=== PATIENT | female | born 1955 | race African-American/Black ===

== ENCOUNTER 2018-04-19 09:29 | Emergency (ER) | payer OTHER, SELFPAY ==
[2018-04-19 11:40] VITALS: BP 136/86; PULSE 94; RESP 13; TEMP 37.3; O2SAT 98
--- NOTE | 2018-04-19 12:35 | ED.NECK ---
HPI - Neck Pain/Injury General Chief Complaint: Neck Pain/Injury Stated Complaint: PAIN ON OUTSIDE OF NECK Time Seen by Provider: 04/19/18 12:35 Source: patient Mode of arrival: ambulatory Limitations: no limitations History of Present Illness HPI Narrative: 62-year-old female here for evaluation of bilateral neck pain. Patient states that it did start a couple weeks ago. She was seen at the walk-in clinic and was told to take Motrin. She states that she took the Motrin for approximately 1 week and her symptoms completely resolved. She states she stopped the Motrin because she was only told to take it for week and now the symptoms have returned. She has no problems breathing. No problems swallowing. Does have pain on bilateral sides of her neck. No masses. No fevers. Here for evaluation also states that the symptoms do descended down into her anterior chest Related Data Home Medications Medication Instructions Recorded Confirmed Probiotic 1 cap PO DAILY 04/19/18 04/19/18 Vitamin B-12 1 tab PO DAILY 04/19/18 04/19/18 Allergies Allergy/AdvReac Type Severity Reaction Status Date / Time shellfish derived Allergy Severe angio adema Verified 04/07/18 10:03 Review of Systems Constitutional Denies chills, Denies fever(s), Denies lethargy and Denies weakness ENT Comments: Bilateral neck pain Cardiovascular Reports chest pain (Anterior chest pain), Denies edema, Denies irregular heart rhythm, Denies dyspnea and Denies dyspnea on exertion Respiratory Denies cough, Denies dyspnea, Denies dyspnea on exertion and Denies wheezing Gastrointestinal Gastrointestinal: Denies abdominal pain, Denies change in bowel habits, Denies diarrhea, Denies nausea and Denies vomiting Integumentary/Breasts Denies pruritus, Denies erythema, Denies rash and Denies wounds Neurologic Denies weakness Hematologic/Lymphatic Denies easy bruising Allergic/Immunologic Denies wheezing PFSH Social History Smoking Status: Never smoker Exam Initial Vital Signs Initial Vital Signs: Vital Signs Temperature 99.1 F 04/19/18 11:40 Pulse Rate 94 H 04/19/18 11:40 Respiratory Rate 13 04/19/18 11:40 Blood Pressure 136/86 H 04/19/18 11:40 Pulse Oximetry 98 04/19/18 11:40 Const General: cooperative and well developed Nutritional Appearance: well nourished Orientation: alert, awake, oriented x3 and not confused [facility] Head: normocephalic and atraumatic Ears: external ears normal Nose: external nose normal and No nasal discharge Face and sinus: sinuses nontender, face symmetric, no sinus tenderness and No dry mucous membranes Mouth: oral mucosae normal and moist mucous membranes Eyes Pupils: PERRL Neck Neck: normal visual inspection, no meningeal signs, trachea midline, No lymphadenopathy, No midline deformity and No JVD Lymphatic: No lymphedema Chest Chest: normal inspection of the chest Resp Effort & Inspection: normal respiratory effort, able to speak in complete sentences, no respiratory distress and no use of accessory muscles Auscultation: clear to auscultation bilaterally, no rales, no rhonchi and no wheezes Cardio Rate: regular rate Rhythm: regular rhythm Heart Sounds: no click, no gallops, no murmurs and no rubs Pulses: normal peripheral pulses Skin General: no rashes or lesions noted, No jaundice and No petechiae Neuro General: alert, oriented x3, gait normal and no focal motor deficits Cranial Nerves: CN's II-XI intact bilaterally Speech: speech normal Motor: strength 5/5 throughout Sensory Exam: no sensory deficits noted Course Orders Ordered: ED Orders 04/19/18 12:50 EKG-12 Lead Stat 04/19/18 13:35 Basic Metabolic Panel Stat Complete Blood Count AUTO DIFF Stat Troponin I Stat 04/19/18 14:32 CT soft tissue neck w con Stat Discontinued Medications Sodium Chloride (Normal Saline 0.9%) 1,000 mls @ 1,000 mls/hr IV BOLUS ONE Stop: 04/19/18 13:49 Last Infusion: 04/19/18 14:45 Dose: 0 mls/hr Admin: 04/19/18 13:43 Dose: 1,000 mls/hr Vital Signs - 8 hr 04/19/18 11:40 04/19/18 13:53 04/19/18 15:17 Temperature 99.1 F Pulse Rate 94 H 96 H 106 H Respiratory Rate 13 16 21 Blood Pressure 136/86 H Blood Pressure [Left Arm] 141/104 H 130/75 H Pulse Oximetry 98 97 95 04/19/18 16:17 Temperature Pulse Rate 96 H Respiratory Rate 24 Blood Pressure 125/72 H Blood Pressure [Left Arm] Pulse Oximetry 100 MDM - Neck Pain/Injury Lab Data Attestation: I reviewed the patient's lab results. Result diagrams: 04/19/18 13:35 04/19/18 13:35 Lab Results 04/19/18 04/19/18 Range/Units 13:35 13:35 WBC 11.0 (4.5-11.0) X10^3/uL RBC 3.57 L (4.0-5.2) X10^6/uL Hgb 10.8 L (12.0-16.0) g/dL Hct 31.8 L (36-46) % MCV 89.2 (80-100) fL MCH 30.3 (26-34) PG MCHC 34.0 (30-36) % RDW 14.2 (11.6-14.8) % Plt Count 269 (150-400) X10^3/uL Neut % (Auto) 79.4 H (50-75) % Lymph % (Auto) 12.6 L (25-40) % [place] % (Auto) 7.7 (3-14) % Eos % (Auto) 0.1 L (2-4) % Baso % (Auto) 0.2 (0-2) % Neut # (Auto) 8800 H (7284-1380) /uL Sodium 138 (137-145) mmol/L Potassium 3.8 (3.4-5.1) mmol/L Chloride 99.0 (98-107) mmol/L Carbon Dioxide 29.0 (22-32) mmol/L BUN 16.0 (7-17) mg/dL Creatinine 0.80 (0.52-1.04) mg/dL Estimated GFR > 60.0 (>60) mL/min BUN/Creatinine Ratio 20.0 (6-22) Glucose 86 (80-110) mg/dL Calcium 9.2 (8.4-10.2) mg/dL Troponin I < 0.012 (0.01-0.034) ng/mL Imaging Data CT neck: Radiologist's impression: PROCEDURE: CT SOFT TISSUE NECK W CON INDICATIONS: Anterior neck pain and problems swallowing TECHNIQUE: After the administration of intravenous contrast, 3.0 mm axial sections acquired from the sella to the aortic arch. Additional oblique axial 3.0 mm sections acquired through the pharynx. 3 mm thick coronal and sagittal reformats were generated. For radiation dose reduction, the following was used: automated exposure control. COMPARISON: None. FINDINGS: Image quality: Excellent. Lymph nodes: No enlarged lymph nodes seen throughout the neck. There is a prominent left level IV lymph node that measures 0.9 cm in short axis. Vessels: Visualized vasculature appears patent. The right common carotid artery and possible internal carotid artery follow medial course projected into the retropharyngeal space. Neck spaces: The oropharynx, nasopharynx, and pharynx demonstrate no mucosal lesions. The vocal cords, false vocal cords, pyriform sinuses, epiglottis, vallecula, and tongue base all appear normal. Extramucosal spaces appear unremarkable. Glands: The parotid and submandibular glands appear normal. Thyroid gland contains a large heterogeneously enhancing mass in the right lobe that measures 4.3 x 3.6 x 2.6 cm. Right thyroid mass causing leftward deviation of the trachea.. Miscellaneous: Visualized brain and orbits appear normal. Lung apices appear clear. Bilateral pleural fluid collections left greater than right noted. Superficial soft tissues appear normal. Bones: No suspicious bony lesions. Spine degenerative disc disease and facet arthropathy. Visualized sinuses and mastoids appear unremarkable. IMPRESSION: 1. 4.3 x 3.6 x 2.6 cm right thyroid mass. Recommend ultrasound guided biopsy for definitive characterization. 2. No lymphadenopathy based on size criteria. 3. Partially visualized bilateral pleural effusions left greater than right, partially visualized pericardial fluid and numerous prominent mediastinal lymph nodes which do not meet pathologic size criteria. Recommend CT scan of the chest for further characterization of findings if clinically indicated. Dictated by: Elisha Palacio MD, PhD on 04/19/2018 at 14:07 Approved by: Elisha Palacio MD, PhD on 04/19/2018 at 14:15 ECG Data Attestation: I personally reviewed and interpreted this ECG as follows: Prior ECG tracings: not available for review Interpretation: Time 1345 hr Sinus rhythm Ventricular rate in 98 Normal axis Normal intervals Normal QRS No ST T wave changes MDM Narrative Medical decision making narrative: Patient with a benign exam. Nontoxic appearing. No foreign bodies on the CT scan. Does have a thyroid nodule. She states that she has seen her primary doctor for this and has had a biopsy and stated that it was ???inconclusive. We did discuss the other findings on her CT scan to include the mediastinal lymph nodes which is somewhat concerning in the setting of that thyroid nodule. We also discussed the pleural effusions that were seen. We had a long discussion regarding her symptoms and further workup to include a CT scan of her chest. I did discuss whether not to do that here in the emergency department firs is doing it as an outpatient with her primary doctor. I do not feel that these findings on the CT scan are not emergent issue however they do need follow-up. I did express this with the patient and she expressed understanding. She does have a follow-up with her primary doctor the middle of next month. We did discuss doing the CT scan here in the emergency department however since she just received contrast for her neck CT we would have to do a noncontrast CT which I feel in this setting would not be optimal. Because of this the patient did agree with the plan of waiting and having this done as an outpatient. Informed her that she needed to contact her primary doctor to have this done. Since the Motrin she took approximately 1 week ago seem to resolve the symptoms that brought her in today will have her restart Motrin. She was informed to take this with food to avoid GI issues. She was given return precautions. She expressed understanding and agreement with plan Discharge Plan Departure Patient Disposition: Home, Self-Care Clinical Impression: Neck pain, Thyroid nodule, Pleural effusion Discharge Date/Time: 04/19/18 16:32 Interventions: ED Discharge Assessment Last Done: 04/19/18 16:17 Instructions: DI for Thyroid Nodule Activity Restrictions/Additional Instructions: As we discussed here in the emergency department you do have a thyroid nodule and some nonspecific lymph nodes noted on your CT scan. Likely discussed we will hold on further CT scans here today. I do recommend that you contact your primary care provider to see about getting a CT scan of your chest prior to your evaluation at the beginning of next month. You do need to discuss the thyroid nodule and the other findings with your primary care doctor. Return to the emergency department for any new symptoms or worsening symptoms. Prescriptions: No Action Probiotic 1 cap PO DAILY RF: 0 Vitamin B-12 1 tab PO DAILY RF: 0
[2018-04-19] MEDS: SODIUM CHLORIDE 0.9% 1,000 ML 1000 ML IV (13:43)
[2018-04-19 13:53] VITALS: BP 141/104; PULSE 96; RESP 16; O2SAT 97
[2018-04-19 13:58] LABS: Add Manual Diff / Slide Review NO; Basophils Percent Auto 0.2 % (0-2); Eosinophils Percent Auto 0.1 % (2-4); Hematocrit 31.8 % (36-46); Hemoglobin 10.8 g/dL (12.0-16.0); Lymphocytes Percent Auto 12.6 % (25-40); Mean Corpuscular Hemoglobin 30.3 PG (26-34); Mean Corpuscular Volume 89.2 fL (80-100); Monocytes Percent Auto 7.7 % (3-14); Neutrophils Absolute Auto 8800 /uL (3000-5900); Neutrophils Percent Auto 79.4 % (50-75); Platelet Count 269 X10^3/uL (150-400); Red Blood Cell Count 3.57 X10^6/uL (4.0-5.2); Red Cell Distribution Width 14.2 % (11.6-14.8)
--- NOTE | 2018-04-19 14:00 | PC.NURSE ---
Neck pain in the front and sides of her neck that radiates into the chest. Denies throat pain but reports swallowing difficulty. Symptoms started a week ago.
[2018-04-19 14:07] LABS: Calcium 9.2 mg/dL (8.4-10.2); Estimated Glomerular Filt Rate > 60.0 mL/min (>60); Glucose 86 mg/dL (80-110); HEMOLYSIS < 15 (0-50); Potassium 3.8 mmol/L (3.4-5.1); Sodium 138 mmol/L (137-145)
[2018-04-19 14:19] LABS: Troponin I < 0.012 ng/mL (0.01-0.034)
--- NOTE | 2018-04-19 14:32 | DI.CT.S_ITS ---
PROCEDURE: CT SOFT TISSUE NECK W CON INDICATIONS: Anterior neck pain and problems swallowing TECHNIQUE: After the administration of intravenous contrast, 3.0 mm axial sections acquired from the sella to the aortic arch. Additional oblique axial 3.0 mm sections acquired through the pharynx. 3 mm thick coronal and sagittal reformats were generated. For radiation dose reduction, the following was used: automated exposure control. COMPARISON: None. FINDINGS: Image quality: Excellent. Lymph nodes: No enlarged lymph nodes seen throughout the neck. There is a prominent left level IV lymph node that measures 0.9 cm in short axis. Vessels: Visualized vasculature appears patent. The right common carotid artery and possible internal carotid artery follow medial course projected into the retropharyngeal space. Neck spaces: The oropharynx, nasopharynx, and pharynx demonstrate no mucosal lesions. The vocal cords, false vocal cords, pyriform sinuses, epiglottis, vallecula, and tongue base all appear normal. Extramucosal spaces appear unremarkable. Glands: The parotid and submandibular glands appear normal. Thyroid gland contains a large heterogeneously enhancing mass in the right lobe that measures 4.3 x 3.6 x 2.6 cm. Right thyroid mass causing leftward deviation of the trachea.. Miscellaneous: Visualized brain and orbits appear normal. Lung apices appear clear. Bilateral pleural fluid collections left greater than right noted. Superficial soft tissues appear normal. Bones: No suspicious bony lesions. Spine degenerative disc disease and facet arthropathy. Visualized sinuses and mastoids appear unremarkable. IMPRESSION: 1. 4.3 x 3.6 x 2.6 cm right thyroid mass. Recommend ultrasound guided biopsy for definitive characterization. 2. No lymphadenopathy based on size criteria. 3. Partially visualized bilateral pleural effusions left greater than right, partially visualized pericardial fluid and numerous prominent mediastinal lymph nodes which do not meet pathologic size criteria. Recommend CT scan of the chest for further characterization of findings if clinically indicated. Dictated by: Elisha Palacio MD, PhD on 04/19/2018 at 14:07 Approved by: Elisha Palacio MD, PhD on 04/19/2018 at 14:15
[2018-04-19 15:17] VITALS: BP 130/75; PULSE 106; RESP 21; O2SAT 95
[2018-04-19 16:17] VITALS: BP 125/72; PULSE 96; RESP 24; O2SAT 100
== END 2018-04-19 16:32 | disposition home or self-care (01) ==
PROVIDERS: Emergency Provider Emergency Medicine; PCP Physician Assistant Medical
DX: M54.2 Cervicalgia (principal); E04.1 Nontoxic single thyroid nodule; J90 Pleural effusion, not elsewhere classified
CPT/HCPCS: 36591; 70491; 80048; 84484; 85025; 93005; 96360; 99283; 99285; Q9967

== ENCOUNTER → 2018-05-11 10:00 | Outpatient (CLI) | payer OTHER, SELFPAY ==
--- NOTE | 2018-05-11 | DI.CT.S_ITS ---
PROCEDURE: CT CHEST W CON INDICATIONS: Right thyroid mass, no adjacent neck adenopathy reported from prior CT scanning but bilateral pleural effusions and pericardial effusion and also prominent mediastinal lymph nodes were seen. TECHNIQUE: After the administration of intravenous contrast, 5 mm thick sections acquired from the pulmonary apices to the posterior costophrenic angles. 7 mm thick coronal and sagittal MIP reformats were acquired. For radiation dose reduction, the following was used: automated exposure control, adjustment of mA and/or kV according to patient size. COMPARISON: [facility], CT, CT SOFT TISSUE NECK W CON, 04/19/2018, 14:30. FINDINGS: Image quality: Excellent. Lungs and pleura: No acute air space opacities. Increasing left effusion, scant right effusion, small pericardial effusion, no pneumothorax. Central and peripheral airways are patent and normal in caliber. Mediastinum: Heart size is normal. No mediastinal or hilar adenopathy by size criteria. Thoracic aorta and central pulmonary arteries are normal in size. Esophagus is normal in caliber. No hiatal hernia. Bones and chest wall: No suspicious bony lesions. No vertebral body compression fractures. No axillary or supraclavicular adenopathy by size criteria. Thyroid gland is unchanged with a large right thyroid mass previously identified 04/19/18, measuring up to 4.3 cm in maximal dimension and mildly deviating the tracheal airway leftward and slightly narrowing its transverse dimension. Abdomen: Visualized upper abdominal solid organs appear normal. Upper abdominal bowel loops are normal in caliber. IMPRESSION: 1. Moderately large right thyroid mass measuring up to 4.3 cm has not changed from the recent prior CT scan of 04/19/18. This mildly deviates and compresses the tracheal airway, stable, and old comparison films would be very helpful in determining chronicity of this abnormality. 2. Increasing left effusion, simple in appearance, now moderate in size. Scant old right effusion, minimal pericardial effusion again noted. 3. The effusions present are not associated with identified pleural or pericardial mass lesions or evidence of serosal inflammation/enhancement/thickening. Etiology is uncertain. 4. No enlarged lymph nodes are identified. There is only a small degree of increased number of lymph nodes seen within the mediastinum, perhaps reactive in origin. The appearance of these nodes is nonspecific, and they have not changed. Dictated by: Tong Cain M.D. on 05/11/2018 at 10:42 Approved by: Tong Cain M.D. on 05/11/2018 at 10:47
== END ==
PROVIDERS: PCP Physician Assistant Medical; Visit Provider Physician Assistant Medical
DX: R22.1 Localized swelling, mass and lump, neck (principal); J90 Pleural effusion, not elsewhere classified
CPT/HCPCS: 71260; Q9967

== ENCOUNTER → 2018-05-12 13:07 | Outpatient (CLI) | payer OTHER, SELFPAY ==
--- NOTE | 2018-05-12 | DI.US.S_ITS ---
PROCEDURE: US THYROID INDICATIONS: 62 year-old female with right thyroid nodule on recent CT scan. TECHNIQUE: Real-time scanning was performed of the thyroid gland, with image documentation. COMPARISON: [facility], CT, CT SOFT TISSUE NECK W CON, 04/19/2018, 14:30. [facility], CT, CT CHEST W CON, 05/11/2018, 10:07. FINDINGS: Right: Thyroid lobe measures 5.7 x 2.7 x 4.2 cm, and is homogeneous in echotexture. Left: Thyroid lobe measures 4.6 x 1.6 x 1.4 cm, and is homogenous in echotexture. Sub-5 mm colloid cyst is incidentally noted. Isthmus: 6.0 mm thick. Nodule number: 1 Location: Right mid and inferior inferior thyroid lobe. Size: 3.7 x 2.3 x 4.0 cm. Composition: Predominantly solid Echogenicity: Hyperechoic Shape: wider than tall. Margins: Smooth Echogenic foci: None Total points: 4 ACR TI-RADS category: Moderately suspicious IMPRESSION: Moderately suspicious right thyroid nodule. Recommend sonographically directed fine needle aspiration given its size of greater than 1.5 cm. ACR TI-RADS definitions and recommendations: TI-RADS 1 (benign): 0 points. FNA not needed. TI-RADS 2 (not suspicious): 2 points. FNA not needed. TI-RADS 3 (mildly suspicious): 3 points. * FNA if 2.5 cm or larger, follow up if 1.5 cm or larger (at 1, 3, and 5 years). TI-RADS 4 (moderately suspicious): 4-6 points. * FNA if 1.5 cm or larger, follow up if 1 cm or larger (at 1, 2, 3, and 5 years). TI-RADS 5 (highly suspicious): 7 points or more. * FNA if 1 cm or larger, follow up if 0.5 cm or larger (every year for 5 years). Dictated by: Keon BENITEZ Interpreted: Tong Cain MD on 05/12/2018 at 15:00 Approved by: Roman Juárez M.D. on 05/12/2018 at 15:18
== END ==
PROVIDERS: PCP Physician Assistant Medical; Visit Provider Otolaryngology
DX: E04.1 Nontoxic single thyroid nodule (principal)
CPT/HCPCS: 76536

== ENCOUNTER → 2018-05-24 13:39 | Outpatient (CLI) | payer OTHER, SELFPAY ==
--- NOTE | 2018-05-24 | DI.US.S_ITS ---
PROCEDURE: US FINE NEEDLE ASPIRATION INDICATIONS: 62 year-old female with dominant right thyroid nodule. TECHNIQUE: The indications, alternatives, benefits, risks, and complications of the procedure were explained to the patient. Written informed consent was obtained and placed in the chart. The thyroid region was examined sonographically and a site was chosen for ultrasound guided percutaneous sampling. The skin was prepared and draped in the usual fashion, and anesthetized with 1% lidocaine infiltrated from the skin down to the thyroid gland. Multiple passes were then performed, with contents emptied into an appropriate pathology specimen container. A bandage was applied to the area of access at completion of the study. COMPARISON: [facility], US, US THYROID, 05/12/2018, 13:37. [facility], CT, CT CHEST W CON, 05/11/2018, 10:07. [facility], CT, CT SOFT TISSUE NECK W CON, 04/19/2018, 14:30. FINDINGS: Location(s) of lesion(s) sampled: Mid and inferior right thyroid lobe. [place]: 25 and 22 gauge hypodermic needles. Number of passes: 6 total. Medications: 1% lidocaine for local anaesthesia. Complications: None. IMPRESSION: Successful ultrasound-guided thyroid nodule fine needle aspiration, with cytology results pending. Please see chart below for management recommendations based on cytology results. [facility] ReportingRecommendationsNon-diagnostic* Repeat US-guided FNA, with on-site cytology evaluation if possible. * Repeated non-diagnostic nodules without high suspicion US features: close observation vs surgical consult. * Consider surgery if nodule has high suspicion US features, grows >20% in 2 dimensions on followup, or patient has clinical risk factors for malignancy. Benign* If nodule has high suspicion US features: repeat US and FNA within 12 months. * If nodule has low to intermediate suspicion US features: repeat US at 12-24 months. If nodule grows (20% increase in at least 2 dimensions, with minimal increase of 2 mm or >50% change in volume), or development of new suspicious US features, then repeat FNA or continue followup. * If nodule has very low suspicion US features: followup US at >24 months. Atypia of undetermined significance, follicular lesion of undetermined significanceRepeat FNA, molecular testing, followup US, or surgical consult.Follicular neoplasm, suspicious for follicular neoplasmSurgical consult; also consider molecular testing. Suspicious for malignancySurgical consult.MalignantSurgical consult. Dictated by: Roman Juárez M.D. on 05/24/2018 at 15:07 Approved by: Roman Juárez M.D. on 05/24/2018 at 15:08
--- NOTE | 2018-05-24 | PATH_ITS ---
Note [facility] Accession Number: [id number] TESTS RESULT FLAG UNITS REF RANGE LAB Clinician Provided Cytology Information No. of containers..01 ThinPrep Vial No. of containers..10 Previously Prepared Cytology Slide 01 R THYROID INFER POLE Clinician ICD10: E04.1 DIAGNOSIS: 02 R THYROID INFER POLE NEGATIVE FOR MALIGNANT CELLS. SPECIMEN CONSISTS OF BENIGN FOLLICULAR CELLS, HEMOSIDERIN-LADEN MACROPHAGES, COLLOID, AND BLOOD. THIS PATTERN IS CONSISTENT WITH A BENIGN FOLLICULAR NODULE. Pathologist ICD10: E04.1 02 Jaime Kat MD, Pathologist NPI- [id number] Julius Chacon, Warehouse Foreman ([facility]) 01 30 CC, PINK, CLEAR RECEIVED: 5 ALCOHOL FIXED AND 5 QUICK STAINED SLIDES. /VDU FLAG LEGEND: L-Low Normal,H-High Normal,LL-Alert Low,HH-Alert High <-Panic Low,>-Panic High,A-Abnormal,AA-Critical Abnormal Performed at: 01 =Z [facility] [address], [place] [address] Gilmer Waite MD, 02 [facility] [address] [place] [id number] Jamie Younger MD, Performed at: 01 [facility] [address], [place], [place] [id number] MD Gilmer Waite MD Phone: [phone]
== END ==
PROVIDERS: PCP Physician Assistant Medical; Visit Provider Otolaryngology
DX: E04.1 Nontoxic single thyroid nodule (principal)
CPT/HCPCS: 10022; 76942